=== PATIENT | female | born 1985 | race Two or more races ===

== ENCOUNTER → 2017-01-02 | Outpatient (CLI) | payer MEDICAID | END | disposition disaster alternative care site (69) | LOC: GRAD 12-29 14:00 | DX: Z34.92 Encounter for supervision of normal pregnancy, unspecified, second trimester (principal); Z3A.21 21 weeks gestation of pregnancy ==

== ENCOUNTER → 2017-04-24 | Outpatient (CLI) | payer MEDICAID | LOC: LFPA 11:45 | DX: Z34.90 Encounter for supervision of normal pregnancy, unspecified, unspecified trimester (principal) ==